=== PATIENT | female | born 1945 | race Hispanic/Latino ===

== ENCOUNTER 2022-10-07 11:02 | Emergency (ER) | payer OTHER ==
[~2022-10-07] VITALS: Ht 149.9 cm; Wt 63.5 kg
[2022-10-07 11:29] LABS: EOSINOPHILS % (AUTO) 2.9 % (0.0-8.0); HEMATOCRIT 38.3 % (36-48); LYMPHOCYTES % (AUTO) 18.9 % (21.0-51.0); MEAN CORPUSCULAR HEMOGLOBIN 27.6 pg (27.0-33.0); MEAN CORPUSCULAR HGB CONC 30.5 g/dL (32.0-36.0); MEAN CORPUSCULAR VOLUME 90.3 fL (79-99); MONOCYTES % (AUTO) 9.2 % (3.0-13.0); NEUTROPHILS % (AUTO) 67.8 % (40.0-77.0); PLATELET COUNT (AUTO) 157 K/uL (130-400); RED BLOOD CELL COUNT(AUTO) 4.24 MIL/uL (4.00-5.50); RED CELL DISTRIBUTION WIDTH 15.4 % (11.0-15.5); WHITE BLOOD COUNT (AUTO) 5.9 K/uL (4.8-10.8)
[2022-10-07] MEDS ORDERED: LACTATED RINGERS 1000ML 1,000 ML IV ONE (11:30)
[2022-10-07 11:36] LABS: CREATININE 0.8 mg/dL (0.5-1.5); POTASSIUM 3.7 mmol/L (3.5-5.1)
[2022-10-07 11:40] LABS: ALBUMIN 3.2 g/dL (3.5-5.0)
[2022-10-07] MEDS ORDERED: FUROSEMIDE 40MG VIAL IV ONE (12:00)
[2022-10-07 12:08] LABS: B-TYPE NATRIURETIC PEPTIDE 2410 pg/mL (0-100)
[2022-10-07 14:35] LABS: CREATININE 0.8 mg/dL (0.5-1.5); POTASSIUM 3.5 mmol/L (3.5-5.1)
[2022-10-07 14:45] LABS: MAGNESIUM 1.9 mg/dL (1.80-2.40)
[2022-10-07 14:55] VITALS: BP 126/66
== END 2022-10-07 15:29 | disposition left against medical advice (07) ==
LOC: EDH 11:02
DX: I21.3 ST elevation (STEMI) myocardial infarction of unspecified site (principal); E78.00 Pure hypercholesterolemia, unspecified; I10 Essential (primary) hypertension; Z79.899 Other long term (current) drug therapy
CPT/HCPCS: 99291; 96374; 71045; 83735; 84484 ×2; 80053; 83880; 85025; 36415; 93005 ×2; 80048; J1940